=== PATIENT | male | born 1940 | race Caucasian/White ===

== ENCOUNTER → 2018-07-09 22:34 | Emergency (ER) | payer MEDICARE ==
[2016-04-26 15:23] VITALS: BP 178/85
[~2018-07-09 22:34] MED LIST: BACDS PO; CEPH500C2 PO; PHEN100C4 PO
== END | disposition home or self-care (01) ==
LOC: ER 04-26 14:03
DX: S29.011A Strain of muscle and tendon of front wall of thorax, initial encounter (principal); C34.90 Malignant neoplasm of unspecified part of unspecified bronchus or lung; X58.XXXA Exposure to other specified factors, initial encounter; Y93.89 Activity, other specified; Y92.89 Other specified places as the place of occurrence of the external cause; Y99.8 Other external cause status
CPT/HCPCS: 71020; 99284